=== PATIENT | female | born 1965 | race Caucasian/White ===

== ENCOUNTER 2018-06-15 15:36 | Emergency (ER) | payer BC, SELFPAY ==
[2018-06-15 15:39] VITALS: BP 153/117; PULSE 107; RESP 18; TEMP 36.3; O2SAT 98; BMI 22.2
--- NOTE | 2018-06-15 15:50 | RAD_ITS ---
STUDY: X-RAY CHEST REASON FOR EXAM: Female, 52 years old. Cough TECHNIQUE: PA and lateral views of the chest. COMPARISON: December 21, 2011 FINDINGS: The lungs are hyperinflated. Normal size heart. Normal mediastinum and keren. Normal visualized pulmonary arteries. Normal visualized aortic arch and descending thoracic aorta. Normal visualized thoracic spine. There is a stable right posterior rib deformity consistent with a healed fracture. There is no demonstrated abnormality of the visualized soft tissue structures of the upper abdomen. RAD/Chest PA and Lateral IMPRESSION: Hyperinflated lungs may reflect underlying COPD. Electronically Signed: Mary Kate Malin MD at 16:09 EDT Tel , Service support ,
--- NOTE | 2018-06-15 15:51 | EKG12_ITS ---
Test Reason : GENERAL ILLNESS Blood Pressure : / mmHG Vent. Rate : 084 BPM Atrial Rate : 084 BPM P-R Int : 152 ms QRS Dur : 078 ms QT Int : 386 ms P-R-T Axes : 073 026 064 degrees QTc Int : 456 ms Sinus rhythm with occasional Premature ventricular complexes Biatrial enlargement Abnormal ECG Confirmed by ARAM DECKER, TALIA ([id number]), editorial intern ALY PAREDES ([id number] on 06/19/2018 2:39:53 PM Referred By: CARMELLA Confirmed By:TALIA CHIU MD
--- NOTE | 2018-06-15 16:15 | ED.DCSUM_ITS ---
- ER Visit Summary Date of Service: 06/15/18 Chief Complaint: Cough History of Present Illness: The patient is a 52 F who states for the past couple weeks she has had rhinorrhea and cough. She states is been productive but beginning today she has not had any sputum. She states that she feels chilled and now feels lightheaded and fatigued. She notes a frontal headache. She denies any stuffy ears or decreased hearing. She states that she does not take any medication having flushed it down the toilet years ago. And she states she does have a MDI has a nebulizer but cannot find it. She is a pack-a-day smoker. Physical Examination: Afebrile vital signs are stable noted triage heart rate of 107 in the 80s on my exam Gen: Well-nourished well-developed Head: Normocephalic atraumatic Eyes: Perrl EOMI ENT: TMs clear bilateral turbinate edema with rhinorrhea moist mucous membranes Neck: Supple no lymphadenopathy no JVD nontender CVS: Regular rate rhythm no murmurs normal S1-S2 Respiratory: No distress clear to auscultation bilaterally chest nontender Abdomen: Soft nontender nondistended normal bowel sounds no masses Back: Nontender Extremity: Nontender no edema Skin: Normal color no rash Neuro: alert orientated ?3 CN II-XII intact normal strength sensation reflexes gait cerebellar Psych: Normal affect normal mood Test Results: Chest x-ray is negative. EKG demonstrates a sinus rhythm with a PVC. CBC and BMP essentially negative. Emergency Department Course and Treatment: 2 weeks of some rhinorrhea and productive cough now with cough and frontal headache chills feeling fatigued and lightheaded. We will treat as sinusitis. Also write for some prednisone given her COPD and Augmentin. Impression: 1. Sinusitis 2. COPD This note was generated with [employer] dictation software. It may contain incorrect words, spelling, and punctuation that were not noted in review of the chart prior to signing ED Disposition - Plan for ED Patient: Disposition: Home or Assisted Living Chief Complaint: Cough Instructions: ED Sinusitis Abx Tx Prescriptions: Amox/Clavulanate Tablet [Augmentin Tablet] 875 mg PO Q12H #20 tab Prednisone [Deltasone] 40 mg PO DAILY #10 tab Referrals: Dian Jeronimo NP-C [Primary Care Provider] - 1 Week if not improving
[2018-06-15 16:53] LABS: Absolute Lymphocyte Count 1.33 X10^3/ul (0.83-4.51); Absolute Neutrophil Count 6.7 X10^3/uL (2.0-7.7); Basophil# 0.04 X10^3/uL; Basophil% 0.4 % (0-1); Eosinophil# 0.05 X10^3/uL; Eosinophils% 0.6 % (0-5); Hematocrit 46.1 % (37-47); Hemoglobin 16.3 g/dl (12.0-15.0); Lymphocyte # 1.33 X10^3/ul (4.0); Lymphocyte % 14.9 % (19-41); Mean Corp Hgb Conc 35.4 g/gl (32-36); Mean Corpuscular Hgb 34.7 pg (27.0-32.0); Mean Corpuscular Volume 98.1 fL (81-99); Monocyte# 0.79 X10^3/uL; Monocyte% 8.9 % (0-10); Neutrophil # 6.67 X10^3/uL (2.7-7.7); Platelet Count 268 K/mm3 (150-450); RBC Distribution Width CV 12.8 % (11.6-14.6); RBC Distribution Width SD 45.1 fl (35.1-43.9); White Blood Count 8.9 K/mm3 (4.4-11.0)
[2018-06-15 16:59] LABS: POSITIVE COUNT NO; POSITIVE DIFFERENTIAL NO; POSITIVE MORPHOLOGY NO
[2018-06-15 17:01] LABS: Anion Gap 6 (5-15); BUN 4 mg/dL (7-18); BUN/Creat Ratio 6.7 RATIO (10-20); Calcium,Total 8.7 mg/dL (8.5-10.1); Chloride 96 mmol/L (98-107); EST Glomerular Filtration Rate 110 mL/min (>60); Est Glom Filt Rate - Afr Amer 133 mL/min (>60); Estimated Creatinine Clearance 84.78 ml/min; Glucose 130 mg/dL (74-106); Potassium 3.8 mmol/L (3.5-5.1); Sodium Level 132 mmol/L (136-145)
--- NOTE | 2018-06-16 11:57 | CM.ED ---
ED CALLBACK: Follow-up call place to patient. No answer. Voicemail left with return contact information.
== END 2018-06-15 18:00 | disposition home or self-care (01) ==
PROVIDERS: Emergency Provider Emergency Medicine; Family Provider Nurse Practitioner Family; PCP Nurse Practitioner Family
DX: J32.9 Chronic sinusitis, unspecified (principal); J44.9 Chronic obstructive pulmonary disease, unspecified; I10 Essential (primary) hypertension; F17.200 Nicotine dependence, unspecified, uncomplicated
CPT/HCPCS: 71046; 80048; 85025; 93005; 99284; A4216

== ENCOUNTER 2025-03-11 21:32 | Emergency (ER) | payer MEDICAID, SELFPAY ==
[2025-03-11 21:33] VITALS: BP 154/114; PULSE 120; RESP 20; TEMP 36.5; O2SAT 94; BMI 25.2
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
[2025-03-11 21:46] VITALS: BP 170/77; PULSE 106; RESP 19; O2SAT 95
--- NOTE | 2025-03-11 22:04 | CT_ITS ---
PROCEDURE: BRAIN/HEAD WITHOUT CONTRAST 03/11/2025 REASON FOR EXAM: ALTERED MENTAL STATE TECHNIQUE: BRAIN/HEAD WITHOUT CONTRAST Coronal and Sagittal reconstruction series were provided. One or more dose reduction techniques were used (e.g., Automated exposure control, adjustment of the mA and/or kV according to patient size, use of iterative reconstruction technique. RADIATION DOSE SUMMARY: CTDlvol: 45 mGy DLP: 745 mGycm COMPARISON: No FINDINGS: Arterial calcifications. Mild white matter change. Mild atrophy. No acute abnormal brain densities. No intracranial hemorrhage. No hydrocephalus or midline shift. Unremarkable orbits. Clear sinuses. CT/Brain/Head without Contrast IMPRESSION: No acute intracranial findings [facility]
--- NOTE | 2025-03-11 22:04 | RAD_ITS ---
PROCEDURE: CHEST 1 VIEW (PORTABLE) 03/11/2025 REASON FOR EXAM: ALTERED MENTAL STATUS TECHNIQUE: Frontal view of the chest. COMPARISON: Chest radiograph 06/15/2018 FINDINGS: Hardware: None Heart: Cardiac and mediastinal contours are stable. Lungs: No focal consolidation or pleural effusion. Bones: Degenerative changes are identified within the shoulders and thoracic spine. Calcification near the greater tuberosity of the right humeral head may represent sequela of calcific tendinopathy. RAD/Chest 1 View (Portable) IMPRESSION: No acute cardiopulmonary abnormality. Reading Location: [id number]
--- NOTE | 2025-03-11 22:04 | RAD_ITS ---
PROCEDURE: CHEST 1 VIEW (PORTABLE) 03/11/2025 REASON FOR EXAM: ALTERED MENTAL STATUS TECHNIQUE: Frontal view of the chest. COMPARISON: Chest radiograph 06/15/2018 FINDINGS: Hardware: None Heart: Cardiac and mediastinal contours are stable. Lungs: No focal consolidation or pleural effusion. Bones: Degenerative changes are identified within the shoulders and thoracic spine. Calcification near the greater tuberosity of the right humeral head may represent sequela of calcific tendinopathy. RAD/Chest 1 View (Portable) IMPRESSION: No acute cardiopulmonary abnormality. Reading Location: [id number]
--- NOTE | 2025-03-11 22:04 | CT_ITS ---
PROCEDURE: BRAIN/HEAD WITHOUT CONTRAST 03/11/2025 REASON FOR EXAM: ALTERED MENTAL STATE TECHNIQUE: BRAIN/HEAD WITHOUT CONTRAST Coronal and Sagittal reconstruction series were provided. One or more dose reduction techniques were used (e.g., Automated exposure control, adjustment of the mA and/or kV according to patient size, use of iterative reconstruction technique. RADIATION DOSE SUMMARY: CTDlvol: 45 mGy DLP: 745 mGycm COMPARISON: No FINDINGS: Arterial calcifications. Mild white matter change. Mild atrophy. No acute abnormal brain densities. No intracranial hemorrhage. No hydrocephalus or midline shift. Unremarkable orbits. Clear sinuses. CT/Brain/Head without Contrast IMPRESSION: No acute intracranial findings Reading [facility]
[2025-03-11] MEDS: Ziprasidone IM 20 MG/ML VIAL 10 MG IM (22:11)
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
[2025-03-11 22:38] VITALS: BP 126/75; PULSE 92; RESP 20; O2SAT 97
[2025-03-11 22:41] LABS: Hematocrit 33.2 % (37-47); Hemoglobin 11.7 g/dL (12.0-15.0); Immature Granulocytes Count 0.050 X10^3/uL (0.0-0.0); Mean Corp Hgb Conc 35.2 g/dL (32-36); Mean Corpuscular Volume 94.3 fL (81-99); Mean Platelet Vol. 9.0 fl (6.2-12.0); NRBC Flagged by Analyzer 0 % (0-5); Platelet Count 425 K/mm3 (150-450); RBC Distribution Width CV 12.1 % (11.6-14.6); RBC Distribution Width SD 42.7 fl (35.1-43.9); Red Blood Count 3.52 M/mm3 (4.2-5.4); White Blood Count 12.6 K/mm3 (4.4-11.0)
--- NOTE | 2025-03-11 22:48 | ED.RN ---
0314 Pt apologectic and alert and oriented. pt calm and cooperative. Leather restraints removed.
--- NOTE | 2025-03-11 22:48 | ED.RN ---
5045 Pt apologectic and alert and oriented. pt calm and cooperative. Leather restraints removed.
[2025-03-11 22:52] LABS: Mucous, Urine 0 SEEN /hpf (<or=2+)
[2025-03-11 22:55] LABS: Color, Urine Yellow (Yellow); Glucose, Dipstick Normal (Normal); Ketone-Dipstick Negative (Negative); Leukocyte Esterase-Dipstick 500 /ul (Negative); Nitrite-Dipstick Negative (Negative); Occult Blood-Urine 10 /ul (Negative); Protein-Dipstick 15 mg/dl (Negative); Specific Gravity, Urine 1.010 (1.002-1.030); Urine Bilirubin Dipstick Negative (Negative)
[2025-03-11 23:00] VITALS: BP 135/62; PULSE 82; RESP 16; O2SAT 98
[2025-03-11 23:04] LABS: Red Blood Cells-Urine 0-5 SEEN /hpf (0-5); Squamous Epithelial Cells - UA 0-5 SEEN /hpf (5-10); Transitional Epithelial - Ur 0-5 SEEN /hpf (0-5)
[2025-03-11 23:12] LABS: Acetaminophen (Tylenol) Level < 5.0 ug/mL (8.0-19.0); Alcohol, Blood (Medical)-Serum < 10.1 mg/dL (<=10.0); Salicylate < 0.5 mg/dL (2.8-20.0)
[2025-03-11 23:18] LABS: Magnesium 1.8 mg/dL (1.5-2.2); Procalcitonin 0.02 ng/mL (<=0.10)
[2025-03-11 23:26] LABS: Barbiturate Urine NEGATIVE (< 200 ng/mL); Benzodiazepine Urine NEGATIVE (< 200 ng/mL); PCP Urine NEGATIVE (< 25 ng/mL); THC Urine PRESUMPTIVE POSITIVE (< 50 ng/mL)
[2025-03-11 23:51] LABS: AST(SGOT) 65 U/L (<=31); Alanine Aminotransfer ALT/SGPT 38 U/L (<=34); Albumin, Serum 4.1 g/dL (3.4-4.8); Alkaline Phosphatase 116 U/L (35-104); Anion Gap 13 (5-15); BUN 15 mg/dL (4-19); BUN/Creat Ratio 18.4 RATIO (10-20); Bilirubin, Direct 0.22 mg/dL (0.00-0.30); Calcium,Total 8.7 mg/dL (7.6-11.0); Carbon Dioxide 25.0 mmol/L (21.0-32.0); Chloride 88 mmol/L (98-108); Estimated Creatinine Clearance 65.10 ml/min (50-250); Globulin 3.1 g/dL (2.2-4.2); Glucose 127 mg/dL (70-99); Potassium 4.4 mmol/L (3.3-5.1)
[2025-03-12] VITALS: BP 112/62; PULSE 70; RESP 18; O2SAT 97
[2025-03-12 01:00] VITALS: BP 162/86; PULSE 80; RESP 13; O2SAT 100
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
[2025-03-12 01:21] VITALS: BP 139/89; PULSE 78; RESP 15; TEMP 36.8; O2SAT 96
== END 2025-03-12 01:26 | disposition home or self-care (01) ==
PROVIDERS: Emergency Provider Emergency Medicine; Visit Provider Emergency Medicine
DX: N39.0 Urinary tract infection, site not specified (principal); F17.210 Nicotine dependence, cigarettes, uncomplicated; J45.909 Unspecified asthma, uncomplicated; E78.5 Hyperlipidemia, unspecified; D72.829 Elevated white blood cell count, unspecified; R45.1 Restlessness and agitation
CPT/HCPCS: 70450; 71045; 80048; 80076; 80143; 80179; 80307; 81001; 82077; 83735; 84145; 84443; 85025; 87077; 87086; 87088; 96365; 96372; 99284; A4216; J3486